=== PATIENT | female | born 1945 | race Two or more races ===

== ENCOUNTER 2016-09-05 23:04 | Emergency (ER) | payer MEDICARE, MEDICAID ==
[~2016-09-05] VITALS: Ht 157.5 cm; Wt 49.9 kg
[2016-09-06 00:52] LABS: Basophils # (auto) 0 uL; Basophils % (auto) 0.2 % (0.0-2.0); DEFINITIVE SEE PRINTOUT; Eosinophils # (auto) 0.3 uL; Eosinophils % (auto) 4.9 % (0.0-7.0); Hematocrit 29.3 % (36.0-46.0); Hemoglobin 9.6 g/dL (12.2-16.2); Lymphocytes # (auto) 0.9 uL; Lymphocytes % (auto) 15.1 % (10.0-50.0); Mean Corpuscular Hgb Conc. 32.8 g/dL (32.0-36.0); Mean Corpuscular Volume 79.4 fL (80.0-100.0); Mean Platelet Volume 8.3 fL (7.4-10.4); Monocytes # (auto) 0.5 uL; Monocytes % (auto) 7.5 % (0.0-12.0); Neutrophils # (auto) 4.5 uL; Neutrophils % (auto) 72.3 % (37.0-80.0); Platelet Count (auto) 243 10^3/uL (140-450); Red Cell Distribution Width 17.5 % (11.6-16.0); White Blood Cell 6.2 10^3/uL (4.4-10.8)
[2016-09-06 01:01] LABS: Acetaminophen 6.4 ug/mL (10-30); Albumin 3.5 g/dL (3.4-5.0); Anion Gap 12 (5-15); Aspartate Aminotransferase 13 U/L (15-37); BUN/Creatinine Ratio 28.3; Blood Urea Nitrogen 13 mg/dL (7-18); Calcium 8.6 mg/dL (8.5-10.1); Carbon Dioxide 24 mmol/L (21-32); Chloride 95 mmol/L (98-107); GFR African American 171 mL/min; GFR Non-African American 142 mL/min; Glucose 99 mg/dL (74-106); Magnesium 1.9 mg/dL (1.6-2.6); Potassium 4.1 mmol/L (3.5-5.1); Salicylate 5.6 mg/dL (2.8-20.0); Sodium 131 mmol/L (136-145)
[2016-09-06 01:04] LABS: Alkaline Phosphatase 98 U/L (45-117); Bilirubin, Total 0.3 mg/dL (0.2-1.0); Total Protein 6.6 g/dL (6.4-8.2)
[2016-09-06 01:56] LABS: Urine RBC None Seen /hpf (0 - 4)
[2016-09-06 02:14] LABS: Urine Bilirubin Negative (Negative); Urine Blood Negative /uL (Negative); Urine Color Yellow (Yellow); Urine Glucose Normal (Normal); Urine Ketone Negative (Negative); Urine Nitrite Negative (Negative); Urine Urobilinogen Normal (Negative)
[2016-09-06] MEDS ORDERED: IBUPROFEN 800 MG TAB PO ONE (07:30)
[2016-09-06] MEDS ORDERED: BENAZEPRIL HCL 10 MG TAB PO ONE (15:45)
[2016-09-06] MEDS ORDERED: ZOLPIDEM TARTRATE 5 MG TAB PO ONE (15:45)
[2016-09-06] MEDS ORDERED: traZODone HCL 50 MG TAB PO PRN (15:45)
[2016-09-06] MEDS ORDERED: HCTZ 25 MG TAB PO ONE (15:45)
[2016-09-06] MEDS ORDERED: PANTOPRAZOLE 40 MG TAB PO ONE (15:45)
[2016-09-06] MEDS ORDERED: ZOLPIDEM TARTRATE 5 MG TAB PO PRN (16:00)
[2016-09-06] MEDS: busPIRone HCL 10 MG TAB PO SCH (16:17)
[2016-09-06] MEDS: PREGABALIN 25 MG CAP PO SCH (16:17)
[2016-09-06] MEDS: NAPROXEN 500 MG TAB PO SCH (22:00)
[2016-09-07] MEDS: PREGABALIN 25 MG CAP PO SCH (09:26)
[2016-09-07] MEDS: busPIRone HCL 10 MG TAB PO SCH (09:26)
[2016-09-07] MEDS: NAPROXEN 500 MG TAB PO SCH (09:27)
[2016-09-07 18:47] VITALS: BP 110/62
== END 2016-09-07 19:10 | disposition home or self-care (01) ==
LOC: ER 23:04 → EDBD 23:04 → ER 09-07 19:10
DX: R45.851 Suicidal ideations (principal); F32.9 Major depressive disorder, single episode, unspecified; F41.9 Anxiety disorder, unspecified; I10 Essential (primary) hypertension; M19.90 Unspecified osteoarthritis, unspecified site; F17.210 Nicotine dependence, cigarettes, uncomplicated; F14.10 Cocaine abuse, uncomplicated; K21.9 Gastro-esophageal reflux disease without esophagitis
CPT/HCPCS: 36415; 71010; 80053; 80307; 80320; 80329; 81001; 83735; 85025; 93005

== ENCOUNTER 2017-11-03 19:15 | Inpatient (IN) | payer MEDICARE, MEDICAID ==
[~2017-11-03] VITALS: Ht 152.4 cm; Wt 63.2 kg
[2017-11-03 20:33] LABS: Basophils # (auto) 0 uL; Basophils % (auto) 0.6 % (0.0-2.0); Eosinophils # (auto) 0.1 uL; Eosinophils % (auto) 1.7 % (0.0-7.0); Hematocrit 37.4 % (36.0-46.0); Hemoglobin 12.4 g/dL (12.2-16.2); Lymphocytes # (auto) 1.1 uL; Lymphocytes % (auto) 23.8 % (10.0-50.0); Mean Corpuscular Hemoglobin 29.2 pg (28.0-32.0); Mean Corpuscular Hgb Conc. 33.2 g/dL (32.0-36.0); Mean Corpuscular Volume 87.9 fL (80.0-100.0); Monocytes # (auto) 0.3 uL; Monocytes % (auto) 6.3 % (0.0-12.0); Neutrophils # (auto) 3.1 uL; Neutrophils % (auto) 67.6 % (37.0-80.0); Nucleated Red Blood Cells % 0.1 %; Platelet Count (auto) 230 10^3/uL (140-450); Red Blood Cells 4.25 10^6/uL (4.0-5.20); Red Cell Distribution Width 15.7 % (11.8-14.3); White Blood Cell 4.6 10^3/uL (4.4-10.8)
[2017-11-03 21:04] LABS: Alanine Aminotransferase 11 U/L (13-56); Albumin 4.1 g/dL (3.4-5.0); Anion Gap 9 (5-15); Aspartate Aminotransferase 8 U/L (15-37); BUN/Creatinine Ratio 17.5; Blood Urea Nitrogen 10 mg/dL (7-18); Calcium 8.7 mg/dL (8.5-10.1); Carbon Dioxide 25 mmol/L (21-32); Chloride 101 mmol/L (98-107); GFR African American 133 mL/min; GFR Non-African American 110 mL/min; Glucose 91 mg/dL (74-106); Magnesium 2.3 mg/dL (1.6-2.6); Potassium 4.2 mmol/L (3.5-5.1); Sodium 135 mmol/L (136-145)
[2017-11-03 21:13] LABS: Alkaline Phosphatase 80 U/L (45-117); Bilirubin, Total 0.4 mg/dL (0.2-1.0); Lipase 4449 U/L (73-393); Total Protein 7.8 g/dL (6.4-8.2)
[2017-11-03 22:19] LABS: Urine Bacteria FEW /hpf (None Seen); Urine Blood Negative /uL (Negative); Urine Mucus FEW (None Seen); Urine Specific Gravity 1.018 (1.001-1.035); Urine WBC 4 /hpf (0 - 5)
[2017-11-04] MEDS ORDERED: TEMAZEPAM 15 MG CAP PO PRN (08:00)
[2017-11-04] MEDS ORDERED: MORPHINE SULF INJ 2 MG/ML SYRINGE 1ML IV PRN (08:00)
[2017-11-04] MEDS ORDERED: ONDANSETRON HCL 4 MG/2 ML VIAL IV PRN (08:00)
[2017-11-04] MEDS ORDERED: ACETAMINOPHEN 500 MG TAB PO PRN (08:00)
[2017-11-04] MEDS: SODIUM CHLORIDE 0.9% 1,000 ML IV SCH ×2 (08:14→21:43)
[2017-11-04] MEDS: HYDROcodone-ACET 5/325MG TAB PO PRN ×2 (08:17→13:48)
[2017-11-04 08:24] LABS: Basophils # (auto) 0 uL; Basophils % (auto) 0.8 % (0.0-2.0); Eosinophils # (auto) 0.2 uL; Eosinophils % (auto) 3.4 % (0.0-7.0); Hematocrit 37.6 % (36.0-46.0); Hemoglobin 12.4 g/dL (12.2-16.2); Lymphocytes # (auto) 1.2 uL; Lymphocytes % (auto) 24.9 % (10.0-50.0); Mean Corpuscular Hemoglobin 28.8 pg (28.0-32.0); Mean Corpuscular Volume 87.3 fL (80.0-100.0); Monocytes # (auto) 0.3 uL; Monocytes % (auto) 7.1 % (0.0-12.0); Neutrophils # (auto) 3.1 uL; Neutrophils % (auto) 63.8 % (37.0-80.0); Nucleated Red Blood Cells % 0.1 %; Platelet Count (auto) 217 10^3/uL (140-450); White Blood Cell 4.8 10^3/uL (4.4-10.8)
[2017-11-04 08:30] LABS: BUN/Creatinine Ratio 20.8; Calcium 9.2 mg/dL (8.5-10.1)
[2017-11-04 10:09] VITALS: BP 137/84
[2017-11-04] MEDS: HCTZ 25 MG TAB PO SCH (11:16)
[2017-11-04] MEDS: BENAZEPRIL HCL 10 MG TAB PO SCH (11:16)
[2017-11-04 11:55] VITALS: BP 139/84
[2017-11-04] MEDS: ALBUTEROL SULF 2.5 MG/0.5ML(0.5%) NEB SOLN NEB PRN (12:04)
[2017-11-04 15:06] VITALS: BP 155/71
[2017-11-04 16:53] VITALS: BP 139/76
[2017-11-04 20:00] VITALS: BP 130/82
[2017-11-04] MEDS ORDERED: traZODone HCL 50 MG TAB PO SCH (22:00)
[2017-11-04 22:05] VITALS: BP 130/82
[2017-11-05] MEDS: HYDROcodone-ACET 5/325MG TAB PO PRN ×3 (03:30→15:22)
[2017-11-05 05:11] VITALS: BP 132/72
[2017-11-05 06:06] LABS: Basophils # (auto) 0 uL; Basophils % (auto) 1.3 % (0.0-2.0); Eosinophils # (auto) 0.2 uL; Eosinophils % (auto) 4.5 % (0.0-7.0); Hematocrit 36.8 % (36.0-46.0); Hemoglobin 12.3 g/dL (12.2-16.2); Lymphocytes # (auto) 1.2 uL; Lymphocytes % (auto) 29.4 % (10.0-50.0); Mean Corpuscular Hemoglobin 29.4 pg (28.0-32.0); Mean Corpuscular Hgb Conc. 33.3 g/dL (32.0-36.0); Mean Corpuscular Volume 88.3 fL (80.0-100.0); Monocytes # (auto) 0.3 uL; Monocytes % (auto) 7.4 % (0.0-12.0); Neutrophils # (auto) 2.3 uL; Neutrophils % (auto) 57.4 % (37.0-80.0); Nucleated Red Blood Cells % 0.2 %; Platelet Count (auto) 191 10^3/uL (140-450); Red Blood Cells 4.16 10^6/uL (4.0-5.20); Red Cell Distribution Width 15.4 % (11.8-14.3); White Blood Cell 3.9 10^3/uL (4.4-10.8)
[2017-11-05 06:26] LABS: BUN/Creatinine Ratio 17.8; Calcium 8.9 mg/dL (8.5-10.1); Potassium 3.7 mmol/L (3.5-5.1)
[2017-11-05 09:00] VITALS: BP 118/72
[2017-11-05] MEDS: BENAZEPRIL HCL 10 MG TAB PO SCH (10:04)
[2017-11-05] MEDS: HCTZ 25 MG TAB PO SCH (10:04)
[2017-11-05] MEDS: SODIUM CHLORIDE 0.9% 1,000 ML IV SCH (10:40)
[2017-11-05 13:00] VITALS: BP 137/89
[2017-11-05] MEDS: ALBUTEROL SULF 2.5 MG/0.5ML(0.5%) NEB SOLN NEB PRN (15:21)
[2017-11-05 17:00] VITALS: BP 159/94
[2017-11-05 17:06] VITALS: BP 118/72
== END 2017-11-05 18:34 | disposition home or self-care (01) | DRG 439 ==
LOC: ER 19:15 → OVERFLOW 19:16 → WEST WING 11-04 09:58
PROVIDERS: ADMIT Nurse Practitioner Family; ATTEND Nurse Practitioner Family
DX: K85.90 Acute pancreatitis without necrosis or infection, unspecified (principal); E87.1 Hypo-osmolality and hyponatremia; K57.30 Diverticulosis of large intestine without perforation or abscess without bleeding; B19.20 Unspecified viral hepatitis C without hepatic coma; F03.90 Unspecified dementia, unspecified severity, without behavioral disturbance, psychotic disturbance, mood disturbance, and anxiety; F17.210 Nicotine dependence, cigarettes, uncomplicated; F32.9 Major depressive disorder, single episode, unspecified; I10 Essential (primary) hypertension; K21.9 Gastro-esophageal reflux disease without esophagitis; M06.9 Rheumatoid arthritis, unspecified; F41.9 Anxiety disorder, unspecified; M19.90 Unspecified osteoarthritis, unspecified site; Z90.49 Acquired absence of other specified parts of digestive tract
CPT/HCPCS: 36415; 71045; 74176; 80048; 80053; 81001; 82150; 83690; 83735; 83880; 84484; 85025; 93005; 94640

== ENCOUNTER 2020-08-09 16:23 | Emergency (ER) | payer MEDICARE, MEDICAID ==
[2020-08-09 16:56] VITALS: BP 104/63
== END 2020-08-09 17:51 | disposition home or self-care (01) ==
LOC: ER 16:23
DX: G89.29 Other chronic pain (principal); K21.9 Gastro-esophageal reflux disease without esophagitis; I10 Essential (primary) hypertension; F17.210 Nicotine dependence, cigarettes, uncomplicated; Z76.0 Encounter for issue of repeat prescription

== ENCOUNTER 2020-08-18 19:41 | Emergency (ER) | payer MEDICARE, MEDICAID ==
[~2020-08-18] VITALS: Ht 162.6 cm; Wt 47.6 kg
[2020-08-18] MEDS ORDERED: ACETAMINOPHEN/CODEINE#3 (300/30mg) TAB PO ONE (21:15)
[2020-08-18 21:30] LABS: Basophils # (auto) 0.1 10 ^3/uL (0-0.2); Basophils % (auto) 0.9 % (0.0-2.0); Eosinophils # (auto) 0.1 10 ^3/uL (0-0.8); Eosinophils % (auto) 1.1 % (0.0-7.0); Hemoglobin 13.4 g/dL (12.2-16.2); Lymphocytes # (auto) 1.6 10 ^3/uL (0.4-5.4); Lymphocytes % (auto) 26.3 % (10.0-50.0); Mean Corpuscular Hemoglobin 28.2 pg (28.0-32.0); Mean Corpuscular Hgb Conc. 34.5 g/dL (32.0-36.0); Monocytes # (auto) 0.3 10 ^3/uL (0-1.3); Neutrophils % (auto) 66.7 % (37.0-80.0); Platelet Count (auto) 301 10^3/uL (140-450); Red Blood Cells 4.75 10^6/uL (4.0-5.20); Red Cell Distribution Width 17.8 % (11.8-14.3)
[2020-08-18 21:47] LABS: Anion Gap 11 (5-15); Blood Urea Nitrogen 4 mg/dL (7-18); Calcium 9.6 mg/dL (8.5-10.1); Carbon Dioxide 21 mmol/L (21-32); Chloride 98 mmol/L (98-107); Glucose 104 mg/dL (74-106); Potassium 3.9 mmol/L (3.5-5.1); Sodium 130 mmol/L (136-145)
[2020-08-18 21:53] LABS: Alanine Aminotransferase 16 U/L (13-56); Alkaline Phosphatase 98 U/L (45-117); Aspartate Aminotransferase 16 U/L (15-37); Bilirubin, Total 0.5 mg/dL (0.2-1.0); GFR African American 132 mL/min; GFR Non-African American 109 mL/min
[2020-08-19 06:41] VITALS: BP 130/86
== END 2020-08-19 09:35 | disposition home or self-care (01) ==
LOC: ER 19:43
DX: R07.9 Chest pain, unspecified (principal); F20.9 Schizophrenia, unspecified; M54.89 Other dorsalgia; M79.602 Pain in left arm; F17.210 Nicotine dependence, cigarettes, uncomplicated; F41.9 Anxiety disorder, unspecified; M19.90 Unspecified osteoarthritis, unspecified site; F03.90 Unspecified dementia, unspecified severity, without behavioral disturbance, psychotic disturbance, mood disturbance, and anxiety; F32.9 Major depressive disorder, single episode, unspecified; K21.9 Gastro-esophageal reflux disease without esophagitis; I10 Essential (primary) hypertension; Z90.49 Acquired absence of other specified parts of digestive tract
CPT/HCPCS: 36415; 71045; 80053; 83880; 84484; 85025; 93005